=== PATIENT | female | born 1940 | race Caucasian/White ===

== ENCOUNTER 2018-04-12 14:00 | Emergency (ER) | payer MEDICARE ==
[~2018-04-12 14:00] MED LIST: AZIT-1 PO; CALC1TAB32 PO; CALC500T42 PO; CEPH500T7 PO; CETI-176 PO; EST3 PO; GLUC-129 PO; GLUC-135 PO; ONDA4TAB97 PO; OXYC-865 PO; PROM-110 PO; PSEU120T69 PO; VIT-7 PO; VIT1CAPS32 PO; [UNRECOGNIZED DRUG - OTHER]
[2018-04-12] MEDS ORDERED: AZIT-17 PO (14:11)
--- NOTE | 2018-04-12 14:28 | ER Report ---
History and Physical Time Seen By MD: 14:24 Hx. of Stated Complaint: pt reports sore throat, currently being treated for infection in ear, reports nausea HPI/ROS CHIEF COMPLAINT: Sore throat and ear pain HISTORY OF PRESENT ILLNESS: This is a 77-year-old female who presents to the emergency department for sore throat and ear pain. Patient states that last Friday she was seen and evaluated at urgent care, started on amoxicillin for strep throat, developed an upset stomach, return to urgent care the next day patient's medications were changed to azithromycin, patient was also prescribed Zofran for nausea. Patient has been taking her medications as prescribed, ran out of the Zofran, states she has one day left of the azithromycin. Patient states she continues to have some residual right ear pain as well as sore throat on the right side. No fevers or chills. Continues to have intermittent nausea no vomiting. No diarrhea. No chest pain or shortness of breath. REVIEW OF SYSTEMS: Respiratory: No cough, no dyspnea. ENT: As above. Cardiovascular: No chest pain, no palpitations. Gastrointestinal: As above. Musculoskeletal: No back pain. Allergies: Coded Allergies: cortisone (Verified Allergy, Severe, rash, 04/12/18) hydrocortisone (Verified Allergy, Severe, rash, 04/12/18) methylprednisolone (Verified Allergy, Severe, rash, 04/12/18) formaldehyde (Verified Allergy, Unknown, RASH, 04/12/18) prednisone (Verified Allergy, Unknown, rash, 04/12/18) all type A steroids Home Meds Active Scripts Ondansetron (ZOFRAN ODT) 4 Mg Tab.rapdis, 4 MG PO Q6H PRN for NAUSEA/VOMITING, #20 TAB.SALVATORE Prov:BLAS MORENO [facility]- 04/12/18 Cephalexin Monohydrate (CEPHALEXIN) 500 Mg Cap, 500 MG PO BID for 10 Days, #20 CAP 0 Refills Prov:BLAS MORENO [facility]- 04/12/18 Estrogens Conjugated (PREMARIN) 0.3 Mg Tab, 0.3 MG PO QODAY, #45 TAB 1 Refill Prov:DWIGHT GONZALEZ MD 03/04/18 Reported Medications Azithromycin (Z-PACK) 250 Mg Tablet, 1 PO QDAY, #6 DOSE-PACK 04/12/18 Cetirizine Hcl (ZYRTEC) 10 Mg Tablet, 1 TAB PO QDAY, TAB 06/01/15 Vit A,C & E/Lutein/Minerals (OCUVITE TABLET) 1 Each Tablet, 1 EACH PO QDAY, TAB 05/24/15 Past Medical/Surgical History The patient has a past medical and surgical history of heart of hearing, wears hearing aids, hysterectomy, breast biopsy, left shoulder surgery, right rotator cuff repair, back surgery, tonsillectomy. Reviewed Nurses Notes: Yes Hx Smoking: Yes Smoking Status: Former Smoker Exposure to Second Hand Smoke?: Yes Hx Substance Use Disorder: No Hx Alcohol Use: Yes Constitutional Vital Sign - Last 24 Hours 04/12/18 04/12/18 14:00 15:03 Temp 98.4 Pulse 71 72 Resp 18 16 B/P (MAP) 133/80 130/80 (97) Pulse Ox 94 93 O2 Delivery Blow-by Room Air Physical Exam General Appearance: The patient is alert, has no immediate need for airway protection and no current signs of toxicity. Eyes: Pupils equal and round no injection. Ears: TMs intact, landmarks noted, pearly campbell bilaterally. Slight bulging of the right TM no effusion. Slight redness to the right ear canal surrounding the TM however nothing that looks infectious, similar appearance to the left. Throat: Erythema to the posterior oropharynx, no petechiae, exudates to the right posterior oropharynx. Very mild right submandibular lymphadenopathy. No hoarseness or stridor. Respiratory: Chest is non tender, lungs are clear to auscultation. Cardiac: regular rate and rhythm. Gastrointestinal: Abdomen is soft and non tender, no masses, bowel sounds normal. Musculoskeletal: Neck: Neck is supple and non tender. Extremities have full range of motion and are non tender. Skin: No rashes or lesions. DIFFERENTIAL DIAGNOSIS: After history and physical exam differential diagnosis was considered for nausea and vomiting including but not limited to gastroenteritis, gastritis, appendicitis, and medication side effect. Medical Decision Making Data Points Laboratory ED Course/Re-evaluation ED Course The patient was admitted to room. A history physical were obtained. Differential diagnoses were considered. After my examination and lengthy discussion with patient be elected to treat with 1 ODT Zofran in the emergency department. Patient will continue with her last dose of azithromycin. I did send the patient home with a prescription for Zofran. I did tell the patient that oftentimes antibiotics can cause upset stomach with nausea. I also told the patient that it does take some time for antibiotics to work and to finish the last dose of azithromycin; wait for approximately 3 days to see if the sore throat and right ear discomfort resolved after finishing the last dose of azithromycin if not she is to fill the Cephalexin, if there is improvement then disregard the prescription. The patient was also sent home with prescription for Magic mouthwash. The patient was in agreement with this plan of care and discharged home. Patient had no questions or concerns. Decision to Disposition Date: Apr 12, 2018 Decision to Disposition Time: 15:01 Depart Departure Latest Vital Signs Vital Signs Date Time Temp Pulse Resp B/P (MAP) Pulse Ox O2 Delivery O2 Flow Rate FiO2 04/12/18 15:03 72 16 130/80 (97) 93 Room Air 04/12/18 14:00 98.4 Impression: Primary Impression: Sore throat Condition: Improved Disposition: HOME OR SELF-CARE Referrals: DWIGHT GONZALEZ MD (PCP) New Scripts Ondansetron (ZOFRAN ODT) 4 Mg Tab.rapdis 4 MG PO Q6H PRN for NAUSEA/VOMITING, #20 TAB.SALVATORE Prov: [facility]- 04/12/18 Cephalexin Monohydrate (CEPHALEXIN) 500 Mg Cap 500 MG PO BID for 10 Days, #20 CAP 0 [facility]18 Patient Instructions: Strep Throat (ED) Additional Instructions: Drink plenty of fluids. Get plenty of rest. Be sure to take the last dose of the azithromycin. If after 3 days you have no improvement of the sore throat and or is getting worse, fill the Keflex. Take the Zofran as needed for nausea. Try the magic mouthwash. Return to the ED for any other concerns or worsening symptoms. Follow up with your PCP in one week for reevaluation or sooner if needed. BLAS MORENO [facility]- Apr 12, 2018 14:28
[2018-04-12] MEDS ORDERED: ONDANSETRON 4 MG ODT TABDP SL ONE (14:50)
[2018-04-12] MEDS ORDERED: CEPH500C24 PO (14:59)
[2018-04-12] MEDS ORDERED: ONDA4TAB PO (14:59)
[2018-04-12 15:03] VITALS: BP 130/80
== END 2018-04-12 15:03 | disposition home or self-care (01) ==
LOC: ER 14:07
DX: J02.9 Acute pharyngitis, unspecified (principal)
CPT/HCPCS: 99283; Q0162; 87081; S0119

== ENCOUNTER → 2018-06-03 | Outpatient (CLI) | payer MEDICARE ==
[~2018-06-03] MED LIST changes: +AZIT-17 PO; +CEPH500C24 PO; +ONDA4TAB PO
[2018-06-03 08:43] LABS: LDL CHOLESTEROL 64 mg/dl
--- NOTE | 2018-06-03 16:33 | RADIOLOGY IMAGING REPORT ---
FACILITY: [facility] PATIENT NAME: LEONIDES MCCOY : [id number] MR: [id number] V: [id number] EXAM DATE: [id number] ORDERING PHYSICIAN: DWIGHT GONZALEZ TECHNOLOGIST: Rosa Ayala PROCEDURE:BILATERAL DIGITAL SCREENING MAMMOGRAM WITH CAD ASSISTED INTERPRETATION & 3D TOMOSYNTHESIS COMPARISON:Prior mammograms 06/02/17, 05/30/16, 05/24/15, 05/11/14, 04/13/13, 04/10/12. INDICATIONS:screening FINDINGS: A small to moderate amount of fibroglandular tissue is seen throughout the breasts. Most of the parenchymal pattern has remained stable allowing for difference in mammographic technique & patient positioning. There is a focal area of increased density posterior to mid nipple line on the Left MLO view for which Spot compression view is recommended. DIAGNOSTIC CATEGORY 0--INCOMPLETE: NEED ADDITIONAL IMAGING EVALUATION. RECOMMENDATIONS: ADDITIONAL MAMMOGRAPHIC VIEWS REQUIRED: LEFT BREAST. IMPRESSION: BIRADS 0: Incomplete. Additional view of the Left breast is recommended. Dictated by: Juju Banks M.D. on 06/03/2018 at 14:17 Transcribed by: RON on 06/03/2018 at 14:35 Approved by: Juju Banks M.D. on 06/03/2018 at 16:32 [facility]
== END ==
LOC: MAMO 00:36
PROVIDERS: ATTEND Internal Medicine
DX: Z12.31 Encounter for screening mammogram for malignant neoplasm of breast (principal); R92.2 Inconclusive mammogram; E78.00 Pure hypercholesterolemia, unspecified
CPT/HCPCS: 36415; 77063; 77067; 82040; 82247; 82310; 82374; 82435; 82465; 82565; 82947; 83718; 84075; 84132; 84155; 84295; 84450; 84460; 84478; 84520

== ENCOUNTER → 2018-06-17 | Outpatient (CLI) | payer MEDICARE ==
--- NOTE | 2018-06-17 12:13 | RADIOLOGY IMAGING REPORT ---
FAC[place] [facility] [place]IENT NAME: LEONIDES MCCOY : [id number] MR: [id number] V: [id number] EXAM DATE: [id number] ORDERING PHYSICIAN: DWIGHT GONZALEZ TECHNOLOGIST: Rosa Ayala PROCEDURE:LEFT DIGITAL DIAGNOSTIC MAMMOGRAM WITH CAD ASSISTED INTERPRETATION & 3D TOMOSYNTHESIS COMPARISON:Prior mammograms 06/03/18, 06/02/17, 05/30/16, 05/24/15, 05/11/14, 04/13/13, 04/10/12. INDICATIONS:abnormal mammo FINDINGS: The patient returns for a rolled Left MLO view and a Spot compression in the Left MLO projection. The focal area of increased density posterior to mid nipple line on the recent Left MLO view appeared compressible and apparently represented summation shadow. There is no demonstration of malignant appearing mass or calcification in the Left breast. DIAGNOSTIC CATEGORY 2--BENIGN FINDING. RECOMMENDATIONS: ROUTINE MAMMOGRAM AND CLINICAL EVALUATION. IMPRESSION: BIRADS 2: Benign finding. No significant abnormality is seen. Dictated by: Juju Banks M.D. on 06/17/2018 at 11:10 Transcribed by: RON on 06/17/2018 at 11:48 Approved by: Juju Banks M.D. on 06/17/2018 at 12:12 [facility]
== END ==
LOC: MAMO 06:53
PROVIDERS: ATTEND Internal Medicine
DX: R92.8 Other abnormal and inconclusive findings on diagnostic imaging of breast (principal)
CPT/HCPCS: 77061; 77065